=== PATIENT | female | born 1935 | race Hispanic/Latino ===

== ENCOUNTER 2023-04-19 16:01 | Outpatient (CLI) | payer MEDICARE, OTHER | END 2023-04-19 16:02 | disposition home or self-care (01) | LOC: MADRAD 16:01 | PROVIDERS: ATTEND Family Medicine | DX: M54.9 Dorsalgia, unspecified (principal); M25.519 Pain in unspecified shoulder; M54.2 Cervicalgia; W18.30XA Fall on same level, unspecified, initial encounter | CPT/HCPCS: 72040 ==